=== PATIENT | male | born 1935 | race Caucasian/White ===

== ENCOUNTER 2018-05-30 12:33 | Emergency (ER) | payer MEDICARE, OTHER ==
[2018-05-30 13:37] LABS: BASO # 0.1 10^3/uL (0.0-0.2); BASO % 0.8 % (0.0-1.0); EOS # 0.5 10^3/uL (0.0-0.50); HEMATOCRIT 45.3 % (42.0-52.0); HEMOGLOBIN 15.3 g/dl (13.5-17.5); IMMATURE GRANULOCYTE % 0.5 % (0-3.0); LYMPH # 2.4 10^3/uL (1.5-4.5); LYMPH % 30.8 % (24.0-44.0); MEAN CORPUSCULAR HEMOGLOBIN 31.8 pg (27.0-33.0); MEAN CORPUSCULAR HGB CONC 33.8 g/dl (32.0-36.5); MEAN CORPUSCULAR VOLUME 94.2 fl (80.0-96.0); MONO # 0.6 10^3/uL (0.0-0.8); MONO % 7.5 % (0.0-5.0); NEUTROPHILS # 4.1 10^3/uL (1.8-7.7); NEUTROPHILS % 53.4 % (36.0-66.0); PLATELET COUNT, AUTOMATED 237 10^3/uL (150-450); RED BLOOD COUNT 4.81 10^6/uL (4.30-6.10); RED CELL DISTRIBUTION WIDTH 12.7 % (11.5-14.5); WHITE BLOOD COUNT 7.7 10^3/uL (4.0-10.0)
[2018-05-30 13:49] LABS: ANION GAP 6 MEQ/L (8-16); BLOOD UREA NITROGEN 15 MG/DL (7-18); CARBON DIOXIDE LEVEL 31 MEQ/L (21-32); CHLORIDE LEVEL 104 MEQ/L (98-107); CREATININE FOR GFR 0.79 MG/DL (0.70-1.30); GLOMERULAR FILTRATION RATE > 60.0 (>35); GLUCOSE, FASTING 138 MG/DL (70-100); POTASSIUM SERUM 4.1 MEQ/L (3.5-5.1); SODIUM LEVEL 141 MEQ/L (136-145)
== END 2018-05-30 14:14 | disposition home or self-care (01) ==
LOC: M ED 12:33
DX: L03.317 Cellulitis of buttock (principal); I48.91 Unspecified atrial fibrillation; E11.9 Type 2 diabetes mellitus without complications; Z86.73 Personal history of transient ischemic attack (TIA), and cerebral infarction without residual deficits; Z79.82 Long term (current) use of aspirin; Z79.84 Long term (current) use of oral hypoglycemic drugs; Z79.899 Other long term (current) drug therapy; Z88.1 Allergy status to other antibiotic agents
CPT/HCPCS: 80048

== ENCOUNTER 2019-03-25 11:57 | Emergency (ER) | payer MEDICARE, OTHER ==
[~2019-03-25] VITALS: Ht 182.9 cm; Wt 100.0 kg
[~2019-03-25 11:57] MED LIST: ALFU10TA2 PO; AMBI5TAB PO; ASPI81TA85 PO; CHOL4POW4 PO; DORZ2OPD OP; ELIQ5TAB PO; GLIP10TA18 PO; KEFL500C17 PO; METF10004 PO; MYRB25TA PO; PANT40TA3 PO; SOTA80TA32 PO; TOLT4CAP3 PO; TRAD5TAB PO
[2019-03-25] MEDS ORDERED: HYDR-3713 PO (12:08)
--- NOTE | 2019-03-25 12:55 | REP ---
Chest one-view HISTORY: Cough Comparison: None Linear densities are present in the lower lobes consistent with bibasilar atelectasis or scarring. The heart is normal in size. The pulmonary vasculature is normal in appearance. Impression: Bibasilar atelectasis or scarring. Electronically Signed by Carlos A Gambino MD 03/25/2019 12:47 P
[2019-03-25 13:00] LABS: VENOUS BASE EXCESS 4.1 (-2.0-2.0); VENOUS HCO3 31.6 MEQ/L (23.0-27.0); VENOUS O2 SATURATION 54.9 % (60.0-80.0); VENOUS PARTIAL PRESSURE CO2 59.7 mmHg (38.0-50.0); VENOUS PARTIAL PRESSURE O2 29.4 mmHg (30.0-50.0); VENOUS PH 7.342 UNITS (7.330-7.430); VENOUS STANDARD HCO3 27.1 MEQ/L; VENOUS TOTAL CO2 33.5 MEQ/L (24.0-28.0)
[2019-03-25 13:07] LABS: BASO % 0.7 % (0.0-1.0); EOS # 0.2 10^3/uL (0.0-0.50); EOS % 3.4 % (0.0-3.0); HEMATOCRIT 42.2 % (42.0-52.0); LYMPH # 1.9 10^3/uL (1.5-4.5); LYMPH % 31.4 % (24.0-44.0); MEAN CORPUSCULAR HEMOGLOBIN 32.1 pg (27.0-33.0); MEAN CORPUSCULAR HGB CONC 33.2 g/dl (32.0-36.5); MEAN CORPUSCULAR VOLUME 96.8 fl (80.0-96.0); MONO # 0.6 10^3/uL (0.0-0.8); MONO % 9.8 % (0.0-5.0); NEUTROPHILS # 3.3 10^3/uL (1.8-7.7); NEUTROPHILS % 53.7 % (36.0-66.0); PLATELET COUNT, AUTOMATED 272 10^3/uL (150-450); RED BLOOD COUNT 4.36 10^6/uL (4.30-6.10); WHITE BLOOD COUNT 6.1 10^3/uL (4.0-10.0)
[2019-03-25 13:17] LABS: INR 1.15; PROTHROMBIN TIME 14.9 SECONDS (12.1-14.4)
[2019-03-25 13:59] LABS: ALBUMIN 3.1 GM/DL (3.2-5.2); ALT/SGPT 17 U/L (12-78); BILIRUBIN,DIRECT 0.1 MG/DL (0.0-0.2); BILIRUBIN,TOTAL 0.3 MG/DL (0.2-1.0); BLOOD UREA NITROGEN 11 MG/DL (7-18); CALCIUM LEVEL 9.4 MG/DL (8.8-10.2); CARBON DIOXIDE LEVEL 31 MEQ/L (21-32); CHLORIDE LEVEL 102 MEQ/L (98-107); CPK CREATINE PHOSPHOKINASE 85 U/L (39-308); CREATININE FOR GFR 0.87 MG/DL (0.70-1.30); GLOMERULAR FILTRATION RATE > 60.0 (>35); GLUCOSE, FASTING 151 MG/DL (70-100); MB/CK RELATIVE INDEX 2.24 (< OR =4); NT-PRO BNP 623 PG/ML (<450); POTASSIUM SERUM 4.3 MEQ/L (3.5-5.1); SODIUM LEVEL 138 MEQ/L (136-145); TOTAL PROTEIN 7.2 GM/DL (6.4-8.2); TROPONIN I < 0.02 NG/ML (< 0.10)
[2019-03-25] MEDS ORDERED: TESS100C PO (14:40)
[2019-03-25] MEDS ORDERED: PRED20TA PO (14:40)
[2019-03-25] MEDS ORDERED: VENTAER INH (14:40)
[2019-03-25] MEDS ORDERED: predniSONE 20 MG TAB PO ONE (14:45)
[2019-03-25 15:00] VITALS: BP 132/71
--- NOTE | 2019-03-25 21:06 | ECGEPIP ---
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
== END 2019-03-25 15:38 | disposition home or self-care (01) ==
LOC: M ED 11:57
DX: J20.6 Acute bronchitis due to rhinovirus (principal); E11.9 Type 2 diabetes mellitus without complications; I48.91 Unspecified atrial fibrillation; Z79.899 Other long term (current) drug therapy; Z79.84 Long term (current) use of oral hypoglycemic drugs; Z79.01 Long term (current) use of anticoagulants; Z88.1 Allergy status to other antibiotic agents

== ENCOUNTER 2019-04-13 23:35 | Emergency (ER) | payer MEDICARE, OTHER ==
[~2019-04-13] VITALS: Ht 182.9 cm; Wt 100.0 kg
[~2019-04-13 23:35] MED LIST changes: +HYDR-3713 PO; +PRED20TA PO; +TESS100C PO; +VENTAER INH
[2019-04-14 01:39] LABS: BASO # 0.1 10^3/uL (0.0-0.2); BASO % 0.4 % (0.0-1.0); EOS # 0.1 10^3/uL (0.0-0.50); EOS % 0.8 % (0.0-3.0); HEMATOCRIT 47.8 % (42.0-52.0); LYMPH # 1.4 10^3/uL (1.5-4.5); LYMPH % 10.6 % (24.0-44.0); MEAN CORPUSCULAR HEMOGLOBIN 32.3 pg (27.0-33.0); MEAN CORPUSCULAR HGB CONC 33.5 g/dl (32.0-36.5); MEAN CORPUSCULAR VOLUME 96.4 fl (80.0-96.0); MONO # 0.7 10^3/uL (0.0-0.8); MONO % 5.1 % (0.0-5.0); NEUTROPHILS # 10.9 10^3/uL (1.8-7.7); NEUTROPHILS % 82.7 % (36.0-66.0); PLATELET COUNT, AUTOMATED 262 10^3/uL (150-450); RED BLOOD COUNT 4.96 10^6/uL (4.30-6.10); WHITE BLOOD COUNT 13.2 10^3/uL (4.0-10.0)
[2019-04-14 02:07] LABS: INR 1.1; PROTHROMBIN TIME 14.3 SECONDS (12.1-14.4)
[2019-04-14 02:08] LABS: PARTIAL THROMBOPLASTIN TIME 31.6 SECONDS (25.4-37.6)
[2019-04-14 02:13] LABS: ALBUMIN 3.3 GM/DL (3.2-5.2); ALT/SGPT 29 U/L (12-78); AMYLASE 37 U/L (25-115); BILIRUBIN,DIRECT 0.3 MG/DL (0.0-0.2); BILIRUBIN,TOTAL 0.6 MG/DL (0.2-1.0); BLOOD UREA NITROGEN 19 MG/DL (7-18); CALCIUM LEVEL 9.4 MG/DL (8.8-10.2); CARBON DIOXIDE LEVEL 27 MEQ/L (21-32); CHLORIDE LEVEL 102 MEQ/L (98-107); CK-MB VALUE MASS 3.4 NG/ML (<3.6); CPK CREATINE PHOSPHOKINASE 58 U/L (39-308); CREATININE FOR GFR 0.88 MG/DL (0.70-1.30); GLOMERULAR FILTRATION RATE > 60.0 (>35); GLUCOSE, FASTING 211 MG/DL (70-100); LIPASE 63 U/L (73-393); MB/CK RELATIVE INDEX 5.86 (< OR =4); POTASSIUM SERUM 4.5 MEQ/L (3.5-5.1); SODIUM LEVEL 136 MEQ/L (136-145); TOTAL PROTEIN 7.5 GM/DL (6.4-8.2); TROPONIN I < 0.02 NG/ML (< 0.10)
[2019-04-14] MEDS ORDERED: ISOVUE-370 76% 100ML VIAL (Q9967) As Ordered ONE (03:05)
--- NOTE | 2019-04-14 05:12 | REPVR ---
EXAM: CT Abdomen and Pelvis With Contrast EXAM DATE/TIME: 04/14/2019 3:17 AM CLINICAL HISTORY: 83 years old, male; Abdominal pain; Generalized; Additional info: Abd pain, HX of sbo TECHNIQUE: Imaging protocol: Axial computed tomography images of the abdomen and pelvis with intravenous contrast. Coronal and sagittal reformatted images were created and reviewed. Radiation optimization: All CT scans at this facility use at least one of these dose optimization techniques: automated exposure control; mA and/or kV adjustment per patient size (includes targeted exams where dose is matched to clinical indication); or iterative reconstruction. Contrast material: ISOVUE 370; Contrast volume: 100 ml; Contrast route: IV; COMPARISON: No relevant prior studies available. FINDINGS: Lungs: There are right basilar atelectatic changes. There is focal sheetlike density in the left lung base which could represent discoid atelectasis however underlying infiltrates cannot be excluded. ABDOMEN: Liver: Normal. No mass. Gallbladder and bile ducts: The patient is status post cholecystectomy. There is no biliary ductal dilatation. Pancreas: Normal. No ductal dilation. Spleen: Normal. No splenomegaly. Adrenals: Normal. No mass. Kidneys and ureters: Normal. No hydronephrosis. 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 There are multiple mildly distended small bowel loops predominantly in the right abdomen measuring up to 3.9 cm with mural and focal hyperemia with nondistended distal small bowel loops however without evidence of definite focal transition. Scattered areas of small bowel non-distention however not followed by complete collapse bowel loops. There is descending colon diverticulosis. There is short segment of sigmoid colon thickening with some adjacent stranding (axial images 108 - 115). Appendix: No evidence of appendicitis. PELVIS: Bladder: Unremarkable as visualized. Reproductive: Unremarkable as visualized. ABDOMEN and PELVIS: Intraperitoneal space: Normal. No free air. No significant fluid collection. Bones/joints: The patient is status post total left hip replacement with grossly intact prosthesis. The patient status post L2-L5 laminectomy with postsurgical fixation with rods and screws from L2-L5. L4-5 intervertebral disc space is seen. Multilevel lumbar spine facet arthrosis is seen. Soft tissues: There is moderate bilateral fat containing inguinal hernias. Vasculature: The aortic root is upper normal in size measuring 4 cm. There is mild to moderate aortic and iliac mural calcifications. Lymph nodes: Normal. No enlarged lymph nodes. IMPRESSION: 1. 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 2. Multiple dilated and hyperemic small bowel loops with nondistended distal small bowel loops however without obvious focal transition zone. Findings could be secondary to enteritis however partial/early bowel obstruction cannot be completely excluded. Followup is recommended. 3. Descending colon diverticulosis. 4. Short segmental thickening of the sigmoid colon could be inflammatory/infectious in nature however underlying neoplastic process is suspected and should be excluded. Colonoscopy is recommended. 5. Moderate-sized bilateral fat containing inguinal hernias. 6. Status post cholecystectomy. 7. Left basilar sheetlike discoid atelectasis versus infiltrates. 8. Upper normal size aortic root at 4 cm. Correlate with echocardiography. Electronically signed by: Ananth Small On 04/14/2019 05:12:22 AM
--- NOTE | 2019-04-14 06:06 | ECGEPIP ---
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
[2019-04-14 09:58] VITALS: BP 140/67
--- NOTE | 2019-04-14 11:57 | ED PDOC ---
Post-Departure Follow-Up dr jefferson and [facility] faxed formal report of ct abd/p for fu Roya Moore MD Apr 14, 2019 11:57
[2019-04-25] MEDS ORDERED: FOLI1TAB11 PO (08:45)
[2019-04-25] MEDS ORDERED: tumeric PO (08:45)
--- NOTE | 2019-04-26 15:03 | CR ---
DATE OF CONSULTATION: 04/14/2019 REASON FOR CONSULTATION: Abdominal pain with CT scan suggesting possible jejunal malrotation. HISTORY OF PRESENT ILLNESS: The patient is a pleasant, 83-year-old man who presented to the emergency department just before midnight on 04/13/2019 complaining of a 1-day history of some abdominal discomfort with some nausea, vomiting, and diarrhea. He reported that the discomfort had started out fairly mild and was primarily in the lower abdomen, particularly the left lower quadrant. This worsened during the day and he developed the additional symptoms. He reportedly had been treated in December at a hospital in [place] for a bowel obstruction. No operative therapy was undertaken. He had complained primarily of cramping during the day and then developed emesis at about 8 o'clock in the evening of 04/13/2019. In the emergency department, he had a bowel movement and his pain was then diminished and he was feeling much better. As part of his evaluation he had some blood work done and then also underwent a CT scan of the abdomen and pelvis. The CT was read as showing a possible malrotation with some jejunal loops noted in the right abdomen. He was found to have some dilated small-bowel loops without an obvious transition zone. Some descending colon diverticulosis was noted as well as a possible thickening in the sigmoid colon for which the possibility of neoplasm was considered. Because of his exam findings and his symptoms, I was consulted to see the patient and make recommendations. ALLERGIES: Allergies are reported to AZITHROMYCIN and LATEX. MEDICATIONS: Are multiple. These include: - prednisone 20 mg tablets one twice a day for 5 days as needed for exacerbation - albuterol inhaler 2 puffs every 46 hours as needed - Tessalon Perles as needed for cough - Eliquis 5 mg by mouth twice daily - metformin 1000 mg by mouth twice daily - linagliptin 5 mg tablets once daily - glipizide 10 mg tablets one twice a day - Protonix 40 mg by mouth daily - Ambien 5 mg tablets 1/2 tablet by mouth every evening as needed for sleep - sotalol hydrochloride 40 mg by mouth twice daily - aspirin 81 mg by mouth daily - alfuzosin 10 mg by mouth daily - tolterodine 4 mg by mouth daily - mirabegron 25 mg by mouth daily - cholestyramine 4 mg 1 packet daily - hydrocodone acetaminophen 5/325 tablets one every 6 hours as needed for pain MEDICAL HISTORY: Significant for hypertension with a history of coronary artery disease and atrial fibrillation. He has a history of type 2 diabetes. He was recently admitted in [place] for what was described as an intestinal obstruction, which was treated with nasogastric decompression only. SURGICAL HISTORY: Patient has undergone some sort of spinal fusion. He has had a left hip replacement. He has had a left knee replacement. He has had left and right rotator cuff procedures. He underwent an appendectomy and cholecystectomy. He has had a tummy tuck in association with an abdominal hernia repair with placement of some mesh. He does have some chronic lung disease. He is a nonsmoker. SOCIAL HISTORY: Patient is visiting the area from [place]. Apparently, [place]. He is and accompanied by a family member to the emergency department. He is a nonsmoker. FAMILY HISTORY: Noncontributory. REVIEW OF SYSTEMS: Reveals no history of chest pain or palpitations. He has had no recent cough, wheezing, or sputum production. He denies any dysuria or hematuria. He has not had any new bone or joint issues. He has no history of deep venous thrombosis (DVT) or pulmonary embolus. He has had no history of recent neurologic symptoms or stroke. His gastrointestinal (GI) symptoms are as outlined in history of the present illness. PHYSICAL EXAMINATION: When I saw the patient, it was quite some time since he presented to the emergency department. He was alert and oriented. He appeared comfortable with no significant abdominal pain at the time that I saw him. His temperature he had been afebrile. His pulse was in the 80s and his blood pressure was in the 120s to 130s. Skin is warm and dry. Sclerae are anicteric. Neck is supple without mass. Heart exam shows a regular rate and rhythm by auscultation. The lungs do not show any wheezes or rhonchi. Abdomen is flat. He has some scarring across the bottom consistent with his abdominoplasty. He does have bowel sounds present. The abdomen is soft and without any significant tenderness at this time. Extremities are without edema. LABORATORY STUDIES: Include a CBC showing a white count of 13,000 with a differential showing 83% neutrophils, 11% lymphocytes, and 5% monocytes. Hemoglobin 16 with a hematocrit of 48 and platelet count is 262,000. His chemistry profile shows sodium of 136, potassium 4.5, chloride 102, CO2 of 27, BUN of 19, creatinine 0.9, and glucose of 211. Liver function tests are normal with a lipase that is also normal and a troponin that is less than 0.02. Urinalysis was not suggestive of a urinary tract infection. CT scan I reviewed personally. On my review of the images, his gallbladder is surgically absent. There does appear to be some incomplete rotation of the colon with the cecum in the right upper quadrant, though the duodenum appears to be normally placed. The kidneys appear somewhat small with some cortical atrophy. There are a few loops of mildly enlarged small bowel in the right mid and upper abdomen. He has diverticulosis in the sigmoid in particular. There is an area definitely noted in the sigmoid where a channel is not seen through the lumen with some thickening of the wall and this is I think suspicious for malignancy. It could be that this represents some sort of post inflammatory narrowing. IMPRESSION: 1. Abdominal pain and cramping now resolved but with CT findings suggestive of a sigmoid narrowing. 2. Coronary artery disease and atrial fibrillation. 3. Hypertension. 4. Diabetes mellitus, type 2. 5. Possible mild incomplete rotation of the colon. RECOMMENDATIONS: At this point, the patient does not appear to require hospitalization. I do think he should have a colonoscopy in the relatively near future to evaluate the abnormality seen on his CT scan. If he has a near obstructing colon cancer for instance, this should be dealt with urgently to prevent acute obstruction. I discussed with the patient and his family member whether he would want to return to [place] and that was their initial thought, but after some discussion the patient indicated that he would consider having a colonoscopy done here locally and depending on the findings he might then return to [place]. His medical records are not available to me at this time. I do think he ought to have some sort of medical clearance prior to having the colonoscopy here locally. I spoke with the emergency department physician and we agreed that we will try to arrange a patient evaluation in an outpatient clinic, possibly the resident clinic to assess his medical issues and then plan on proceeding with a colonoscopy with me. The patient is satisfied with this plan and I will see him back in the office for planning of the colonoscopy. ITALO
== END 2019-04-14 10:07 | disposition home or self-care (01) ==
LOC: M ED 23:35
DX: R10.9 Unspecified abdominal pain (principal); I45.10 Unspecified right bundle-branch block; I48.91 Unspecified atrial fibrillation; R93.3 Abnormal findings on diagnostic imaging of other parts of digestive tract; I25.10 Atherosclerotic heart disease of native coronary artery without angina pectoris; E11.9 Type 2 diabetes mellitus without complications; I10 Essential (primary) hypertension; Z79.82 Long term (current) use of aspirin; Z79.84 Long term (current) use of oral hypoglycemic drugs; Z79.899 Other long term (current) drug therapy; Z88.1 Allergy status to other antibiotic agents; Z91.040 Latex allergy status
CPT/HCPCS: 36415; 74177; 80048; 80076; 81001; 82150; 82550; 82553; 83605; 83690; 84484; 85025; 85610; 85730; 93005; 93041; 94760; 99285; Q9967

== ENCOUNTER → 2019-04-22 | Outpatient (REF) | payer MEDICARE, OTHER ==
[~2019-04-22] MED LIST changes: -ALFU10TA2 PO; +ALFU10TA3 PO; +FOLI1TAB11 PO; +tumeric PO
[2019-04-22 12:28] LABS: BASO # 0.1 10^3/uL (0.0-0.2); BASO % 0.7 % (0.0-1.0); EOS # 0.5 10^3/uL (0.0-0.50); EOS % 7.7 % (0.0-3.0); HEMATOCRIT 42.3 % (42.0-52.0); HEMOGLOBIN 13.7 g/dl (13.5-17.5); LYMPH # 1.9 10^3/uL (1.5-4.5); LYMPH % 28.1 % (24.0-44.0); MEAN CORPUSCULAR HEMOGLOBIN 31.7 pg (27.0-33.0); MEAN CORPUSCULAR HGB CONC 32.4 g/dl (32.0-36.5); MEAN CORPUSCULAR VOLUME 97.9 fl (80.0-96.0); MONO # 0.5 10^3/uL (0.0-0.8); MONO % 7.9 % (0.0-5.0); NEUTROPHILS # 3.8 10^3/uL (1.8-7.7); NEUTROPHILS % 54.9 % (36.0-66.0); PLATELET COUNT, AUTOMATED 224 10^3/uL (150-450); RED BLOOD COUNT 4.32 10^6/uL (4.30-6.10); WHITE BLOOD COUNT 6.9 10^3/uL (4.0-10.0)
[2019-04-22 12:35] LABS: BILIRUBIN,DIRECT 0.2 MG/DL (0.0-0.2); BILIRUBIN,TOTAL 0.4 MG/DL (0.2-1.0)
== END ==
LOC: M SFHCPLAZ 10:18
PROVIDERS: ATTEND Family Medicine
DX: D72.829 Elevated white blood cell count, unspecified (principal); E80.6 Other disorders of bilirubin metabolism
CPT/HCPCS: 36415; 82247; 82248; 85025; G0463

== ENCOUNTER 2019-04-30 06:21 | Day surgery (SDC) | payer MEDICARE, OTHER ==
[~2019-04-30] VITALS: Ht 182.9 cm; Wt 95.3 kg
[~2019-04-30 06:21] MED LIST changes: +ALFU10TA2 PO; -ALFU10TA3 PO
[2019-04-30] MEDS ORDERED: NS 1,000 ML IV ONE (07:00)
[2019-04-30] MEDS ORDERED: SIMETHICONE 40MG/0.6ML DROPS 30ML As Ordered ONE (07:09)
[2019-04-30] MEDS ORDERED: PROPOFOL 200 MG/20 ML VIAL As Ordered ONE ×2 (07:46→08:16)
[2019-04-30] MEDS ORDERED: PHENYLephrine HCL 500 MCG/5 ML (100MCG/ML) SYRINGE (J2370) As Ordered ONE (08:01)
--- NOTE | 2019-04-30 09:47 | ROOR ---
Patient Name: Ruddy Vega Procedure Date: 04/30/2019 7:37 AM Date of : 1935 Age: 83 Room: [facility] Gender: Male Note Status: Finalized Procedure: Colonoscopy Indications: Abnormal CT of the GI tract, Recent CT of the abdomen/pelvis suggested a narrowing in the sigmoid colon. Providers: Luciano Parkinson MD Referring MD: Bib Fuentes Requesting Provider: Medicines: Monitored Anesthesia Care Complications: No immediate complications. Procedure: Pre-Anesthesia Assessment: - Prior to the procedure, a History and Physical was performed, and patient medications and allergies were reviewed. The patient is competent. The risks and benefits of the procedure and the sedation options and risks were discussed with the patient. All questions were answered and informed consent was obtained. Patient identification and proposed procedure were verified by the physician, the nurse and the anesthesiologist in the procedure room. Mental Status Examination: alert and oriented. CV Examination: irregularly irregular rate and rhythm. Prophylactic Antibiotics: The patient does not require prophylactic antibiotics. Prior Anticoagulants: The patient has taken Eliquis (apixaban), last dose was 4 days prior to procedure. ASA Grade Assessment: III - A patient with severe systemic disease. After reviewing the risks and benefits, the patient was deemed in satisfactory condition to undergo the procedure. The anesthesia plan was to use monitored anesthesia care (MAC). Immediately prior to administration of medications, the patient was re-assessed for adequacy to receive sedatives. The heart rate, respiratory rate, oxygen saturations, blood pressure, adequacy of pulmonary ventilation, and response to care were monitored throughout the procedure. The physical status of the patient was re-assessed after the procedure. The Colonoscope [id number] #[id number] was introduced through the anus and advanced to the cecum, identified by appendiceal orifice and ileocecal valve. The colonoscopy was somewhat difficult due to a redundant colon. Successful completion of the procedure was aided by changing the patient to a supine position and applying abdominal pressure. The patient tolerated the procedure well. The quality of the bowel preparation was fair. Findings: The perianal and digital rectal examinations were normal. Two sessile polyps were found in the hepatic flexure. The polyps were 3 to 5 mm in size. These polyps were removed with a cold snare. Polyp resection was incomplete. The resected tissue was retrieved. A benign-appearing, intrinsic mild stenosis measuring 5 cm (in length) was found at 25 cm proximal to the anus and was traversed. Biopsies were taken with a cold forceps for histology. The mucosa in the narrowed area appeared reddened and mildly inflamed but there was no sign of tumor or gross ulceration. Above and below the mildly narrowed area the mucosa was normal. Multiple medium-mouthed diverticula were found in the sigmoid colon and distal descending colon. Impression: - Preparation of the colon was fair. - Two 3 to 5 mm polyps at the hepatic flexure, removed with a cold snare. Incomplete resection. Resected tissue retrieved. 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 Biopsied. - Diverticulosis in the sigmoid colon and in the distal descending colon. Recommendation: - Discharge patient to home. - Resume previous diet. - Resume Eliquis (apixaban) at prior dose tomorrow. - Await pathology results. - Return to endoscopist as previously scheduled. Luciano Parkinson MD Luciano Parkinson MD 04/30/2019 9:47:02 AM Electronically signed by Luciano Parkinson MD Number of Addenda: 0 Note Initiated On: 04/30/2019 7:37 AM Estimated Blood Loss: Estimated blood loss was minimal.
[2019-04-30] MEDS ORDERED: **hydrALAZINE** 10 MG TAB PO ONE (10:00)
[2019-04-30 10:07] VITALS: BP 164/100
[2019-04-30 10:40] VITALS: BP 147/84
== END 2019-04-30 10:52 | disposition home or self-care (01) ==
LOC: M OPP 06:21
PROVIDERS: ATTEND Surgery
DX: D12.3 Benign neoplasm of transverse colon (principal); K57.30 Diverticulosis of large intestine without perforation or abscess without bleeding; K56.699 Other intestinal obstruction unspecified as to partial versus complete obstruction; R93.3 Abnormal findings on diagnostic imaging of other parts of digestive tract
CPT/HCPCS: 45380; 45385; 88305; J2370